=== PATIENT | female | born 1970 | race Two or more races ===

== ENCOUNTER 2019-06-10 05:32 | Day surgery (SDC) | payer OTHER ==
[2019-06-06 15:16] VITALS: BMI 30.7
[2019-06-10] MEDS ORDERED: DEXAMETHASONE SOD PHOSPHATE 4 MG/1 ML VIAL ONE (07:13)
[2019-06-10] MEDS ORDERED: SODIUM CHLORIDE 0.9% P/F 10 ML VIAL IJ ONE (07:13)
[2019-06-10] MEDS ORDERED: KETOROLAC TROMETHAMINE 30 MG/1 ML VIAL ONE (07:13)
[2019-06-10] MEDS ORDERED: PROPOFOL 20 ML ONE ×2 (07:14)
[2019-06-10] MEDS ORDERED: SUCCINYLCHOLINE CHLORIDE 200 MG/10 ML SYRINGE ONE (07:14)
[2019-06-10] MEDS ORDERED: MIDAZOLAM HCL 2 MG/2 ML SINGLE DOSE VIAL ONE (07:14)
[2019-06-10] MEDS ORDERED: EPHEDRINE SULFATE/0.9% NACL/PF 50 MG/10 ML SYRINGE NR ONE (07:15)
[2019-06-10] MEDS ORDERED: ROCURONIUM BROMIDE 50 MG/5 ML SYRINGE ONE (07:15)
--- NOTE | 2019-06-10 07:29 | HP ---
History & Physical Update - History History: No Change - Physical Physical: No Change - Assessment Assessment: No Change - Plan Plan: No Change (No change in HP)
[2019-06-10] MEDS ORDERED: IBUPROFEN 600 MG TABLET (FP) PO PRN (07:30)
[2019-06-10] MEDS ORDERED: ACETAMINOPHEN 325 MG TABLET (FP) PO PRN (07:30)
[2019-06-10] MEDS ORDERED: LACTATED RINGERS SOLUTION 1,000 ML IV SCH ×2 (07:30→09:30)
[2019-06-10] MEDS ORDERED: CLINDAMYCIN 600 MG PREMIX BAG IVPB ONE (08:10)
[2019-06-10] MEDS ORDERED: NEOSTIGMINE METHYLSULFATE 0.5 MG/ML - 10 ML MDV ONE (08:12)
[2019-06-10] MEDS ORDERED: GLYCOPYRROLATE 0.2 MG/1 ML VIAL ONE (08:13)
[2019-06-10] MEDS ORDERED: BUPIVACAINE HCL/PF 0.5% (5 MG/ML) 30 ML VIAL IJ ONE (08:57)
[2019-06-10] MEDS ORDERED: oxyCODONE HCL 5 MG TABLET PO PRN ×2 (09:18)
[2019-06-10] MEDS ORDERED: ONDANSETRON 4 MG/2 ML VIAL IVPUSH PRN (09:18)
--- NOTE | 2019-06-10 09:20 | OP ---
Operative Note - Note: Operative Date: 06/10/19 Pre-Operative Diagnosis: hydrosalpinx, cervical polyp Operation: Bilateral salpingectomy, hysteroscopic myomectomy, suction dilatation and curretage Post-Operative Diagnosis: Other (Endometrial fibroids, cervical myoma, Right hydrosalpinx) Surgeon: Rosaura Nick Compounder Helper: Augustine Jones Anesthesiologist/MANNEQUIN MAKER: Sonia Dawn Anesthesia: General Operative Report Dictated: Yes
--- NOTE | 2019-06-10 09:25 | SURG ---
Surgery Aircraft Skin Burnisher Note Aircraft Skin Burnisher: Augustine Jones PA-C Date of Service: 06/10/19 Diagnosis: hydrosalpinx, cervical polyp Procedure: Bilateral salpingectomy, hysteroscopic myomectomy, suction dilatation and curretage I was present for the entirety of the operative procedure. For further detail, please refer to operative report. Visit type - Case Type Case Type: Scheduled - Emergency Emergency Visit: No - New patient This patient is new to me today: Yes Date on this admission: 06/10/19 - Critical Care Critical Care patient: No
[2019-06-10 13:50] VITALS: TEMP 97.5
--- NOTE | 2019-06-10 15:54 | OP ---
DATE OF OPERATION: 06/10/2019 PREOPERATIVE DIAGNOSIS: Right hydrosalpinx, cervical polyp, and endometrial myoma. OPERATION: Bilateral laparoscopic salpingectomy, hysteroscopic myomectomy, suction dilation and curettage. POSTOPERATIVE DIAGNOSIS: Right hydrosalpinx, submucosal myoma, cervical myoma. SURGEON: Sera Nick MD ENGLISH AS A SECOND LANGUAGE INSTRUCTOR: ANESTHESIOLOGIST: Sonia Dawn MD ANESTHESIA: General. PROCEDURE: Patient was taken to operating room, placed in dorsal lithotomy position, prepped and draped in the usual sterile fashion. A time-out was performed in accordance with hospital regulation. Attention was then drawn to the umbilicus where a 5-mm umbilical incision was made. Veress needle was inserted into the cavity. Approximately 3-4 L of CO2 were insufflated in the cavity. Veress needle was then removed, and a 5-mm trocar was inserted. Laparoscope and camera attached. A 10-mm right incision was made, lower abdomen incision, and trocar was inserted under direct visualization, and a 5-mm incision was made on the right side, and trocar was inserted under direct visualization. LigaSure and grasper were then used to perform a bilateral salpingectomy. Tubes were removed through the trocars. Ovaries were noted to be normal. Hemostasis was achieved. All instruments were then removed. Incisions were then closed using Daniel-Herrera 10-mm incision and subcuticular using 3-0 Biosyn suture in a subcuticular fashion. All incisions were closed using 3-0 Biosyn suture in subcuticular fashion. Attention was then drawn to the vagina where the anterior lip of the cervix was grasped with a single-tooth tenaculum. Cervical myoma was noted as well as endometrial myoma and polyps, and cautery and cutting of the endometrial myoma was done, and specimen was submitted to Pathology. Suction dilation and curettage was performed, and this procedure was repeated about 3 or 4 times. Estimated blood loss was approximately 10 mL. Patient tolerated procedure well and was taken to the recovery room in stable condition. SERA NICK M.D. [id number]
[2019-06-10] MEDS ORDERED: IBUPROFEN 600 MG TABLET (FP) PO ONE ×2 (16:55→17:00)
[2019-06-10 17:24] VITALS: BP 116/56; PULSE 63
--- NOTE | 2019-06-11 14:36 | PATH ---
Surgical Pathology Report Patient Name: JAVED ABBASI [facility]. Rec. #: [id number] /Age/Gender: 1970 (Age: 48) / F Account: [id number] Location: [facility] SURGICAL Taken: 06/10/2019 Received: 06/10/2019 Reported: 06/11/2019 Physicians: Rosaura Nick M.D. Specimen(s) Received A: LEFT FALLOPIAN TUBE B: RIGHT FALLOPIAN TUBE C: CERVICAL POLYP AND ENDOMETRIAL MYOMA Clinical History Hydrosalpinx, cervical polyp Final Diagnosis A. LEFT FALLOPIAN TUBE, SALPINGECTOMY: PORTION OF FALLOPIAN TUBE WITH CHRONIC SALPINGITIS. B. RIGHT FALLOPIAN TUBE, SALPINGECTOMY: PORTION OF FALLOPIAN TUBE WITH HYDROSALPINX. C. CERVICAL POLYP AND ENDOMETRIAL MYOMA, EXCISION: FRAGMENTS OF ENDOCERVICAL POLYP. SEPARATE ENDOMETRIAL POLYP. WEAKLY PROLIFERATIVE ENDOMETRIUM. SEPARATE FRAGMENTS OF SQUAMOUS EPITHELIUM, NEGATIVE FOR DYSPLASIA. Electronically Signed David Ladd M.D. Gross Description A. Received in formalin labeled "left fallopian tube," is a 4 cm in length fimbriated fallopian tube. The outer surface is smyth-pink and smooth. Sectioning reveals an unremarkable lumen. Auto Porter sections are submitted in 2 cassettes as follows: 1-fimbria; 2-cross sections of fallopian tube. B. Received in formalin labeled "right fallopian tube," is a 6.5 cm in length markedly dilated, fimbriated fallopian tube. The outer surface is smyth-pink and smooth. Sectioning reveals a markedly dilated lumen containing clear serous fluid. Auto Porter sections are submitted in 3 cassettes as follows: 1-fimbria; 2-3-cross sections of fallopian tube. C. Received in formalin labeled "cervical polyp and endometrial myoma," is a 4.0 x 3.0 x 0.2 cm aggregate of smyth-red soft tissue fragments. The formalin is filtered and the specimen is entirely submitted in one cassette. /06/10/2019 [facility]
--- NOTE | 2019-06-12 18:17 | PATH ---
Cytology Non-Gynecological Report Patient Name: JAVED ABBASI [facility]. Rec. #: [id number] /Age/Gender: 1970 (Age: 48) / F Account: [id number] Location: [facility] SURGICAL Taken: 06/10/2019 Received: 06/10/2019 Reported: 06/12/2019 Physicians: Rosaura Nick M.D. Specimen(s) Received RIGHT FALLOPIAN TUBE FLUID Clinical History Fallopian tube fluid, right Final Diagnosis FALLOPIAN TUBE FLUID, RIGHT, CYTOLOGY: SATISFACTORY FOR EVALUATION. NEGATIVE FOR MALIGNANT CELLS. CYSTIC LESION WITH MACROPHAGES, LYMPHOCYTES, AND RARE STROMAL FRAGMENT. Comment: Direct smear shows macrophages and lymphocytes in a background of proteinaceous material. Rare stromal fragment is present in the cell block material. Suggest clinical correlation. Electronically Signed Janki Nazario M.D. Gross Description Approximately 45 cc of white fluid received fresh. One cytofunnel prepared and Pap stained. One cellblock prepared
== END 2019-06-10 18:20 | disposition home or self-care (01) ==
LOC: JASU-SURG 05:32
PROVIDERS: ATTEND Obstetrics & Gynecology
PROC: 0UJD8ZZ Inspection of Uterus and Cervix, Via Natural or Artificial Opening Endoscopic (ICD-10-PCS; 2019-06-10)
PROC: 0UT74ZZ Resection of Bilateral Fallopian Tubes, Percutaneous Endoscopic Approach (ICD-10-PCS; principal; 2019-06-10 07:30)
PROC: 0UB98ZZ Excision of Uterus, Via Natural or Artificial Opening Endoscopic (ICD-10-PCS; 2019-06-10 07:30)
PROC: 0UDB7ZX Extraction of Endometrium, Via Natural or Artificial Opening, Diagnostic (ICD-10-PCS; 2019-06-10 07:30)
DX: N70.11 Chronic salpingitis (principal); D25.0 Submucous leiomyoma of uterus; D26.0 Other benign neoplasm of cervix uteri
CPT/HCPCS: 88108; 88302-TC; 88305-TC; 94760